=== PATIENT | female | born 1960 | race Caucasian/White ===

== ENCOUNTER → 2019-10-14 | Outpatient (CLI) | payer OTHER ==
[~2019-10-14] MED LIST: COREG3.125 MG PO; NORCO 5-325 TA1 EACH PO; PRAVACHOL20 MG PO; PREDNISONE 20 M20 M1 PO; PRINIVIL20 MG PO; ROBAXIN500 MG PO; XARELTO15 MG PO
== END ==
LOC: M.CT 10:46
DX: Z13.6 Encounter for screening for cardiovascular disorders (principal)

== ENCOUNTER 2021-11-14 15:29 | Emergency (ER) | payer OTHER ==
[~2021-11-14] VITALS: Ht 175.3 cm; Wt 136.1 kg
[~2021-11-14 15:29] MED LIST changes: -PRAVACHOL20 MG PO; +REPATHA SU140 MG/1 M SUBQ
[2021-11-14] MEDS ORDERED: JANTOVEN7.5 MG PO (15:44)
[2021-11-14] MEDS ORDERED: LEVO-T100 MCG PO (15:45)
[2021-11-14 18:21] LABS: ABSOLUTE EOSINOPHILS 0.1 thou/uL (0.0-0.7); ABSOLUTE LYMPHOCYTES 2.1 thou/uL (0.8-5.3); ABSOLUTE MONOCYTES 0.2 thou/uL (0.0-1.2); ABSOLUTE NEUTROPHILS 2.4 thou/uL (1.6-8.1); BASOPHILS 0.3 %; EOSINOPHILS 1.9 %; HEMATOCRIT 41.4 % (37.0-47.0); HEMOGLOBIN 13.6 gm/dL (12.0-15.0); LYMPHOCYTES 43.1 %; MCH 26.6 pg (26.0-34.0); MCHC 32.8 g/dL (28.0-37.0); MONOCYTES 5.2 %; MPV 8.5 fl. (7.2-11.1); NUCLEATED RBCS 0 /100WBC; PLATELET COUNT* 221 thou/uL (150-400); POLYS 49.5 %; RBC 5.11 mil/uL (4.20-5.00); WBC 4.8 thou/uL (4.0-11.0)
[2021-11-14 18:34] LABS: CALCIUM 8.8 mg/dL (8.5-10.1); CREATININE 0.9 mg/dL (0.6-1.3); POTASSIUM 3.7 mmol/L (3.5-5.1)
[2021-11-14 18:44] LABS: ALBUMIN 3.5 g/dL (3.4-5.0); TOTAL BILIRUBIN 0.6 mg/dL (<0.1-1.0); TOTAL PROTEIN 6.8 g/dL (6.4-8.2)
[2021-11-14 20:04] LABS: PROTIME 29.9 Seconds (9.20-11.50)
[2021-11-14] MEDS ORDERED: VENTOLIN HFA 1818 GM INH (20:32)
[2021-11-14] MEDS ORDERED: FLEXERIL PO (20:32)
[2021-11-14] MEDS ORDERED: MUCINEX600 MG PO (20:32)
[2021-11-14 20:48] VITALS: BP 134/67
--- NOTE | 2021-11-15 10:03 | EKG ---
[place] [address] ELECTROCARDIOGRAM REPORT Name: BUBBA ALFARO Room: [facility]#: [id number] Admission: 11/14/21 Attend Phys: Discharge: 11/14/21 Date of : 58 Date of Service: 11/14/21 1709 Report #: [id number] THIS REPORT FOR: //name// [facility] ED Test Date: 2021-11-14 Test Time: 17:09:12 Pat Name: BUBBA ALFARO Department: Room: Gender: Trauma Manager: : 1960 Requested By: Daniel Steen Order Number: [id number] MD: Monico Bowman Measurements Intervals [place] Rate: 62 P: 43 DE: 143 QRS: -2 QRSD: 101 T: 12 QT: 414 QTc: 421 Interpretive Statements Sinus rhythm Borderline T abnormalities, inferior leads Baseline wander in lead(s) III Compared to ECG 09/18/2016 08:13:35 T-wave abnormality now present Sinus tachycardia no longer present Early repolarization no longer present Electronically Signed On 11-15-2021 9:05:33 REPLENISHMENT SPECIALIST by Monico Bowman [email or web address] <ELECTRONICALLY SIGNED> By: Monico Bowman MD, FACC 11/15/21 0905 1709 1709 Monico Bowman MD, FAC /EPI
== END 2021-11-14 20:50 | disposition home or self-care (01) ==
LOC: M.ERS 15:29
PROVIDERS: Nurse Practitioner Family
DX: R09.89 Other specified symptoms and signs involving the circulatory and respiratory systems (principal); Z20.822 Contact with and (suspected) exposure to COVID-19; R42 Dizziness and giddiness; R09.81 Nasal congestion; R60.0 Localized edema; I10 Essential (primary) hypertension; E78.00 Pure hypercholesterolemia, unspecified; E66.9 Obesity, unspecified; Z86.711 Personal history of pulmonary embolism; Z79.899 Other long term (current) drug therapy; Z79.01 Long term (current) use of anticoagulants; Z88.1 Allergy status to other antibiotic agents; Z68.41 Body mass index [BMI] 40.0-44.9, adult; Z86.16 Personal history of COVID-19